=== PATIENT | male | born 1965 | race Two or more races ===

== ENCOUNTER 2017-03-16 00:28 | Emergency (ER) | payer OTHER ==
[~2017-03-16] VITALS: Ht 185.4 cm; Wt 88.5 kg
[2017-03-16 00:45] VITALS: BP 148/80
[2017-03-16] MEDS ORDERED: IBUPROFEN600 MG ORAL (02:09)
[2017-03-16 02:15] VITALS: BP 148/80
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
--- NOTE | 2017-03-16 09:59 | Diagnostic Imaging Report ---
Indication: PAIN Technique: 3 views of the right knee Comparison: None Findings:No acute fractures. No dislocations. Small inferior pole patellar traction osteophyte. Joint spaces are preserved. No evidence of effusion Impression:No acute process This agrees with the preliminary interpretation provided by the emergency room physician
--- NOTE | 2017-03-16 10:01 | Diagnostic Imaging Report ---
Indication: PAIN Technique: 3 views of the left knee Comparison: None Findings:No acute fractures. No dislocations. Small superior pole patellar traction osteophyte noted Impression:No acute process This agrees with the preliminary interpretation provided by the emergency room physician
== END 2017-03-16 02:15 | disposition home or self-care (01) ==
LOC: EMR 01:53
DX: S80.00XA Contusion of unspecified knee, initial encounter (principal); I10 Essential (primary) hypertension; V13.4XXA Pedal cycle driver injured in collision with car, pick-up truck or van in traffic accident, initial encounter; Y93.55 Activity, bike riding; Y92.410 Unspecified street and highway as the place of occurrence of the external cause
CPT/HCPCS: 99284

== ENCOUNTER → 2019-05-19 | Emergency (ER) | payer MEDICARE, OTHER ==
[~2019-05-19] VITALS: Ht 182.9 cm; Wt 83.9 kg
[~2019-05-19] MED LIST: IBUPROFEN600 MG ORAL
--- NOTE | 2019-05-19 17:31 | NUR ---
ED Nurse Note: Pt ambulated to ED with the c/o swelling and pain on LT ankle. Pt is AOx4, calm and cooperative. Placed on bed.
--- NOTE | 2019-05-19 17:35 | NUR ---
ED Nurse Note: PA on bedside.
--- NOTE | 2019-05-19 17:40 | NUR ---
ED Nurse Note: Pain medication given.
--- NOTE | 2019-05-19 18:22 | Emergency Room Report ---
History of Present Illness General Chief Complaint: Lower Extremity Injury Source: Patient Present Illness HPI 52 YO male presents to the ED c/o 01/01 in severity localized left ankle pain s/ p mechanical slip and fall 2 days ago. Pt. denies hitting his head or having LOC. he denies midline neck or back pain. Pt. reports pain upon weight bearing and walking. HE has been keeping his foot wrapped and applied essential oil with no relief of his symptoms. Denies numbness tingling or loss of sensation or gross motor movements of the extremities, incontinence of bowel or bladder. Denies CP, Palpitations, dizziness, Changes in Vision, weakness or a sudden severe headache. Allergies: Coded Allergies: No Known Allergies (Unverified , 03/16/17) Patient History Past Medical History: see triage record, HIV Past Surgical History: none Pertinent Family History: none Reviewed Nursing Documentation: PMH: Agreed; PSxH: Agreed Nursing Documentation-PMH Past Medical History: No History, Except For Hx Cardiac Problems: No - HIV, HPV Hx Hypertension: Yes Review of Systems All Other Systems: negative except mentioned in HPI Physical Exam Vital Signs Date Time Temp Pulse Resp B/P (MAP) Pulse Ox O2 Delivery O2 Flow Rate FiO2 05/19/19 17:29 98.6 109 18 175/114 (134) 96 Room Air Sp02 EP Interpretation: reviewed, normal General Appearance: no apparent distress, alert, GCS 15, non-toxic Head: normocephalic, atraumatic Eyes: bilateral eye normal inspection, bilateral eye PERRL ENT: hearing grossly normal, normal voice Neck: full range of motion Respiratory: lungs clear, normal breath sounds, speaking full sentences Cardiovascular #1: regular rate, rhythm, no edema, normal capillary refill Cardiovascular #2: 2+ dorsalis pedis (L) Musculoskeletal: normal range of motion, gait/station normal, tender - Lateral left ankle, swelling noted, no bruises. NVI, swelling - lateral left ankle Neurologic: alert, motor strength/tone normal, oriented x3, sensory intact, responsive, speech normal Psychiatric: judgement/insight normal Skin: normal color, normal inspection Medical Decision Making PA Attestation Dr. Estrada Is my supervising Physician whom patient management has been discussed with. Diagnostic Impression: Primary Impression: Left ankle sprain Qualified Codes: S93.402A - Sprain of unspecified ligament of left ankle, initial encounter ER Course 52 YO male presents to the ED c/o 01/01 in severity localized left ankle pain s/ p mechanical slip and fall 2 days ago. Pt. denies hitting his head or having LOC. he denies midline neck or back pain. Pt. reports pain upon weight bearing and walking. HE has been keeping his foot wrapped and applied essential oil with no relief of his symptoms. Denies numbness tingling or loss of sensation or gross motor movements of the extremities, incontinence of bowel or bladder. Denies CP, Palpitations, dizziness, Changes in Vision, weakness or a sudden severe headache. Ddx considered but are not limited to Fracture, dislocation, contusion, Sprain/ Strain/Spasm Vital signs: are WNL, pt. is afebrile H&PE are most consistent with musculoskeletal injury will perform imaging to r/ o fractures/dislocations. ORDERS: - X-ray Left ankle 3 views - negative for fx, Dislocation, or significant soft tissue injury, per preliminary read in ED, and signed by LAURA Deal , my supervising physician has reviewed, and agrees with my interpretation. ED INTERVENTIONS: -600mg IBU PO -Left ankle air splint applied by plating technician. Pt. remains neurovascularly intact. -Patient is provided with crutches and instructed on their use DISCHARGE: At this time pt. is stable for d/c to home. Will provide printed patient care instructions, and any necessary prescriptions. Care plan and follow up instructions have been discussed with the patient prior to discharge. Other X-Ray Diagnostic Results Other X-Ray Diagnostic Results : X-Ray ordered: Left ankle # of Views/Limited Vs Complete: 3 View Indication: Pain EP Interpretation: Yes LAURA Xray: Interpretation reviewed, by supervising MD, and agrees with findings. Interpretation: no dislocation, no soft tissue swelling, no fractures Impression: No acute disease Electronically Signed by: Mireya Deal PA-C Last Vital Signs Date Time Temp Pulse Resp B/P (MAP) Pulse Ox O2 Delivery O2 Flow Rate FiO2 05/19/19 17:29 98.6 109 18 175/114 (134) 96 Room Air Status: improved Disposition: HOME, SELF-CARE Condition: Stable Referrals: [facility] Patient Instructions: Ankle Sprain Additional Instructions: Take medications as directed. Follow up with a PCP or [facility] in 3-5 days, even if your symptoms have resolved. If symptoms persist MRI may be required at the discretion of your PCP or Ortho Specialist. --Please review list of primary care clinics, if you do not already have a primary care provider who can give you an Orthopedic Referral. Return sooner to ED if new symptoms occur, or current symptoms become worse. - Please note that this Emergency Department Report was dictated using [employer] tender technology software, occasionally this can lead to erroneous entry secondary to interpretation by the dictation equipment. Mireya Deal May 19, 2019 18:22
--- NOTE | 2019-05-19 18:50 | NUR ---
ED Nurse Note: Splints applied on affected area.
[2019-05-19 19:02] VITALS: BP 126/82
--- NOTE | 2019-05-19 19:02 | NUR ---
ER DISCHARGE NOTE: Patient is cleared to be discharged per ERMD, pt is aox4, on room air, with stable vital signs. pt was given dc and prescription instructions, pt was able to verbalize understanding, pt id band removed. pt is able to ambulate with bilateral clutches and splint on LT ankle . pt took all belongings.
--- NOTE | 2019-05-20 15:34 | Diagnostic Imaging Report ---
Indication: left ankle pain Comparison: None Findings: 3 views of the left ankle obtained. No acute fracture, malalignment, periostitis, or osteochondral defects are identified. Impression: No acute findings
== END | disposition home or self-care (01) ==
LOC: EMR 19:11
DX: S93.402A Sprain of unspecified ligament of left ankle, initial encounter (principal); I10 Essential (primary) hypertension; W01.0XXA Fall on same level from slipping, tripping and stumbling without subsequent striking against object, initial encounter; Y93.9 Activity, unspecified; Y92.9 Unspecified place or not applicable
CPT/HCPCS: 99283